=== PATIENT | female | born 1975 | race Caucasian/White ===

== ENCOUNTER 2021-06-25 10:24 | Emergency (ER) | payer BC ==
[2021-06-25 10:34] VITALS: TEMP 98.8
[2021-06-25] MEDS ORDERED: SODIUM CHLORIDE 0.9% 500 ML 500 ML IV STA (10:40)
--- NOTE | 2021-06-25 11:22 | XR ---
EXAMINATION TYPE: XR chest 2V DATE OF EXAM: 06/25/2021 COMPARISON: None HISTORY: Dysrhythmia and shortness of breath. Recent Covid. TECHNIQUE: Frontal and lateral views of the chest are obtained. FINDINGS: There is no focal air space opacity, pleural effusion, or pneumothorax seen. The cardiac silhouette size is within normal limits. The osseous structures are intact. Clips over the upper abdomen. IMPRESSION: No acute cardiopulmonary process.
[2021-06-25 11:23] LABS: Basophils % (A) 0 %; Eosinophils # (A) 0.1 k/uL (0-0.7); Eosinophils % (A) 1 %; HCT 45.5 % (34.0-46.0); HGB 14.7 gm/dL (11.4-16.0); INR 0.9 (<1.2); Lymphocytes # (A) 1.7 k/uL (1.0-4.8); Lymphocytes % (A) 18 %; MCH 30.6 pg (25.0-35.0); MCHC 32.2 g/dL (31.0-37.0); Mean Platelet Volume 7.5; Monocytes # (A) 0.5 k/uL (0-1.0); Monocytes % (A) 5 %; Neutrophils % (A) 74 %; Platelet Count 305 k/uL (150-450); RDW 14.4 % (11.5-15.5); WBC 9.6 k/uL (3.8-10.6)
[2021-06-25 11:24] LABS: ALT 28 U/L (4-34); AST 24 U/L (14-36); African American GFR (CKD) >90 (>60 ml/min/1.73 sqM); Albumin 3.6 g/dL (3.5-5.0); Alkaline Phosphatase 70 U/L (38-126); Anion Gap 9 mmol/L; Blood Urea Nitrogen 17 mg/dL (7-17); Calcium 9.4 mg/dL (8.4-10.2); Carbon Dioxide 22 mmol/L (22-30); Chloride 107 mmol/L (98-107); Glucose 149 mg/dL (74-99); Magnesium 1.9 mg/dL (1.6-2.3); Non-African American GFR(CKD) >90 (>60 ml/min/1.73 sqM); Partial Thromboplastin Time 24.6 sec (22.0-30.0); Potassium 4.1 mmol/L (3.5-5.1); Prothrombin Time 9.8 sec (9.0-12.0); Sodium 138 mmol/L (137-145); Total Bilirubin 0.8 mg/dL (0.2-1.3); Total Protein 6.7 g/dL (6.3-8.2)
[2021-06-25] MEDS ORDERED: METOPROLOL TARTRATE 25 MG TAB PO STA (12:27)
[2021-06-25 12:37] VITALS: RESP 18
--- NOTE | 2021-06-25 13:21 | ED ---
Arrhythmia/Palpitations HPI - General Chief Complaint: Arrhythmia/Palpitations Stated Complaint: Rapid Heart Rate Time Seen by Provider: 06/25/21 10:39 Source: patient, RN notes reviewed Mode of arrival: ambulatory Limitations: no limitations - History of Present Illness Initial Comments: 46-year-old female presents emergency Department with chief complaint of elevated heart rate. Patient states been having issues of last several months is greatly worsened and she had quit twice in 2 months. Patient states that her heart rate while doing some activity today was in the 150s. Patient states she is scheduled for an outpatient stress test secondary to this. Patient does have Stevie's, rheumatoid arthritis. Patient states that he gets very short of breath with her symptoms while at rest she does not have shortness of breath. No chest pain pain or leg swelling usual. - Related Data Home Medications Medication Instructions Recorded Confirmed Hydroxychloroquine Sulfate 200 mg PO BID 06/25/21 06/25/21 [Plaquenil] Levothyroxine Sodium 125 mcg PO DAILY 06/25/21 06/25/21 Magnesium Oxide [Magox 400] 400 mg PO DAILY 06/25/21 06/25/21 Nitrofurantoin Monohyd/M-Cryst 100 mg PO DAILY PRN 06/25/21 06/25/21 [Macrobid] clonazePAM [KlonoPIN] 0.5 mg PO HS 06/25/21 06/25/21 Previous Rx's Medication Instructions Recorded Metoprolol Tartrate [Lopressor] 25 mg PO BID #60 tablet 06/25/21 Allergies Allergy/AdvReac Type Severity Reaction Status Date / Time No Known Allergies Allergy Verified 06/25/21 11:40 Review of Systems ROS Statement: Those systems with pertinent positive or pertinent negative responses have been documented in the HPI. ROS Other: All systems not noted in ROS Statement are negative. Past Medical History Past Medical History: Rheumatoid Arthritis (RA), Thyroid Disorder History of Any Multi-Drug Resistant Organisms: None Reported Past Surgical History: Cholecystectomy, Tonsillectomy Past Psychological History: No Psychological Hx Reported Smoking Status: Never smoker Past Alcohol Use History: None Reported Past Drug Use History: None Reported General Exam Limitations: no limitations General appearance: alert, in no apparent distress Head exam: Present: atraumatic, normocephalic, normal inspection Eye exam: Present: normal appearance, PERRL, EOMI. Absent: scleral icterus, conjunctival injection, periorbital swelling ENT exam: Present: normal exam, mucous membranes moist Neck exam: Present: normal inspection, full ROM. Absent: tenderness, meningismus, lymphadenopathy Respiratory exam: Present: normal lung sounds bilaterally. Absent: respiratory distress, wheezes, rales, rhonchi, stridor Cardiovascular Exam: Present: normal rhythm, tachycardia, normal heart sounds. Absent: systolic murmur, diastolic murmur, rubs, gallop, clicks GI/Abdominal exam: Present: soft, normal bowel sounds. Absent: distended, tenderness, guarding, rebound, rigid Course Vital Signs 06/25/21 06/25/21 10:28 12:30 Temperature 98.8 F Pulse Rate 122 H 108 H Respiratory 20 18 Rate Blood Pressure 141/90 149/85 O2 Sat by Pulse 98 97 Oximetry Medical Decision Making - Medical Decision Making Patient does have some persistent tachycardia. D-dimer, labs all unremarkable. EKG unremarkable. I did discuss the case with Dr. Alegria recommends patient be started on metoprolol 25 mg twice a day will follow-up in office will follow-up for stress test and return for any worsening change in symptoms. Patient was given initial dose emergency department, was evaluated and observed she states she feels greatly improved. - Lab Data Result diagrams: 06/25/21 11:02 06/25/21 11:02 Lab Results 06/25/21 06/25/21 06/25/21 Range/Units 11:02 11:02 11:02 WBC 9.6 (3.8-10.6) k/uL RBC 4.80 (3.80-5.40) m/uL Hgb 14.7 (11.4-16.0) gm/dL Hct 45.5 (34.0-46.0) % MCV 95.0 (80.0-100.0) fL MCH 30.6 (25.0-35.0) pg MCHC 32.2 (31.0-37.0) g/dL RDW 14.4 (11.5-15.5) % Plt Count 305 (150-450) k/uL MPV 7.5 Neutrophils % 74 % Lymphocytes % 18 % Monocytes % 5 % Eosinophils % 1 % Basophils % 0 % Neutrophils # 7.0 (1.3-7.7) k/uL Lymphocytes # 1.7 (1.0-4.8) k/uL Monocytes # 0.5 (0-1.0) k/uL Eosinophils # 0.1 (0-0.7) k/uL Basophils # 0.0 (0-0.2) k/uL PT 9.8 (9.0-12.0) sec INR 0.9 (<1.2) APTT 24.6 (22.0-30.0) sec D-Dimer 0.46 (<0.60) mg/L FEU Sodium 138 (137-145) mmol/L Potassium 4.1 (3.5-5.1) mmol/L Chloride 107 (98-107) mmol/L Carbon Dioxide 22 (22-30) mmol/L Anion Gap 9 mmol/L BUN 17 (7-17) mg/dL Creatinine 0.63 (0.52-1.04) mg/dL Est GFR (CKD-EPI)AfAm >90 (>60 ml/min/1.73 sqM) Est GFR (CKD-EPI)NonAf >90 (>60 ml/min/1.73 sqM) Glucose 149 H (74-99) mg/dL Calcium 9.4 (8.4-10.2) mg/dL Magnesium 1.9 (1.6-2.3) mg/dL Total Bilirubin 0.8 (0.2-1.3) mg/dL AST 24 (14-36) U/L ALT 28 (4-34) U/L Alkaline Phosphatase 70 (38-126) U/L Troponin I (0.000-0.034) ng/mL Total Protein 6.7 (6.3-8.2) g/dL Albumin 3.6 (3.5-5.0) g/dL TSH 2.630 (0.465-4.680) mIU/L 06/25/21 Range/Units 11:02 WBC (3.8-10.6) k/uL RBC (3.80-5.40) m/uL Hgb (11.4-16.0) gm/dL Hct (34.0-46.0) % MCV (80.0-100.0) fL MCH (25.0-35.0) pg MCHC (31.0-37.0) g/dL RDW (11.5-15.5) % Plt Count (150-450) k/uL MPV Neutrophils % % Lymphocytes % % Monocytes % % Eosinophils % % Basophils % % Neutrophils # (1.3-7.7) k/uL Lymphocytes # (1.0-4.8) k/uL Monocytes # (0-1.0) k/uL Eosinophils # (0-0.7) k/uL Basophils # (0-0.2) k/uL PT (9.0-12.0) sec INR (<1.2) APTT (22.0-30.0) sec D-Dimer (<0.60) mg/L FEU Sodium (137-145) mmol/L Potassium (3.5-5.1) mmol/L Chloride (98-107) mmol/L Carbon Dioxide (22-30) mmol/L Anion Gap mmol/L BUN (7-17) mg/dL Creatinine (0.52-1.04) mg/dL Est GFR (CKD-EPI)AfAm (>60 ml/min/1.73 sqM) Est GFR (CKD-EPI)NonAf (>60 ml/min/1.73 sqM) Glucose (74-99) mg/dL Calcium (8.4-10.2) mg/dL Magnesium (1.6-2.3) mg/dL Total Bilirubin (0.2-1.3) mg/dL AST (14-36) U/L ALT (4-34) U/L Alkaline Phosphatase (38-126) U/L Troponin I <0.012 (0.000-0.034) ng/mL Total Protein (6.3-8.2) g/dL Albumin (3.5-5.0) g/dL TSH (0.465-4.680) mIU/L Disposition Clinical Impression: Palpitations, Tachycardia Disposition: HOME SELF-CARE Condition: Stable Instructions (If sedation given, give patient instructions): Heart Palpitations (ED) Additional Instructions: Please return to the Emergency Department if symptoms worsen or any other concerns. Prescriptions: Metoprolol Tartrate [Lopressor] 25 mg PO BID #60 tablet Is patient prescribed a controlled substance at d/c from ED?: No Referrals: Mohsen Luna Jr, [Primary Care Provider] - 1-2 days Time of Disposition: 13:21
[2021-06-25 13:29] VITALS: BP 139/82; PULSE 81
== END 2021-06-25 13:29 | disposition home or self-care (01) ==
LOC: EC 10:24
DX: R00.0 Tachycardia, unspecified (principal); R00.2 Palpitations; E07.9 Disorder of thyroid, unspecified; Z90.49 Acquired absence of other specified parts of digestive tract
CPT/HCPCS: 36415; 71046; 80053; 83735; 84443; 84484; 85025; 85379; 85610; 85730; 93005; 99285

== ENCOUNTER → 2021-07-04 | Outpatient (CLI) | payer OTHER ==
[~2021-07-04] MED LIST: DOBUTamine DRIP for NUC MED 500 MG in DEXTROSE/WATER 1 250ML.BAG IV PRN
--- NOTE | 2021-07-05 08:22 | ECHOS ---
STRESS ECHOCARDIOGRAM DATE OF STUDY: 07/04/2021 INDICATIONS: Chest pain. BASELINE HEART RATE: 91 BASELINE BLOOD PRESSURE: 120/53 MAXIMUM HEART RATE: 154 MAXIMUM BLOOD PRESSURE: 239/55 85% MPHR: 149 100% MPHR: 175 METS: 4.7 MAXIMUM STAGE REACHED: 1 TOTAL EXERCISE TIME: 3:30 CLINICAL INFORMATION: STRESS DATA: Pre-testing physical examination showed a heart rate of 91, pressure of 120/53 mmHg. Baseline EKG showed sinus mechanism. The patient exercised on the treadmill according to Carlos protocol for a total of 3 minutes and 30 seconds and achieved 4.7 METS. Max heart rate was 152, which is about 88% of maximum predicted heart rate, with maximum blood pressure of 239/55 mmHg. Clinically the patient did not have any symptoms of chest pain or chest discomfort. The EKG did not show any significant ST or T-wave abnormalities concerning for ischemia. ANALYSIS: Echocardiogram images from parasternal long axis view, parasternal short axis view, apical 4-chamber and apical 2 chamber views were obtained as the baseline images, at the peak of the heart rate as well as on recovery. The echocardiogram images showed good augmentation in the left ventricular systolic function without any evidence of wall motion abnormalities concerning for ischemia. CONCLUSION: 1. Poor exercise tolerance. 2. Normal EKG in response to exercise. 3. Normal echocardiogram in response to exercise. MMODL / IJN: [id number] /
== END | disposition home or self-care (01) ==
LOC: RADNMMAIN 08:54 → EDUNIT# 09:15
PROVIDERS: ATTEND Family Medicine
DX: R00.9 Unspecified abnormalities of heart beat (principal); R10.13 Epigastric pain
CPT/HCPCS: 93351; Q9950

== ENCOUNTER → 2022-08-10 | Outpatient (CLI) | payer BC, OTHER ==
--- NOTE | 2022-08-10 07:55 | MR ---
EXAMINATION TYPE: MR knee RT wo con DATE OF EXAM: 08/10/2022 COMPARISON: Limited right knee x-ray July 15, 2022 HISTORY: Rt knee medial pain with locking and swelling after fall injury 3 weeks ago. Meniscal derang ement. MCL sprain. Osteoarthritis all per order. TECHNIQUE: Multiplanar, multisequence images of the knee is performed without IV contrast. FINDINGS: MEDIAL MENISCUS: Anterior and posterior horns are intact without tear. LATERAL MENISCUS: Anterior and posterior horns are intact without tear. CRUCIATE LIGAMENTS: The posterior cruciate ligaments is intact and unremarkable. There is full-thickn ess tear mid substance of the anterior cruciate ligament. COLLATERAL LIGAMENTS: The medial collateral ligament and lateral collateral ligament complex are inta ct. Moderate fluid surrounds the medial collateral ligament. EXTENSOR MECHANISM: Visualized quadriceps and patellar tendons are intact. EFFUSION: Moderate-sized suprapatellar joint effusion. POPLITEAL CYST: Small multiseptated popliteal/ornelas cyst sagittal image 10 with some ill-defined flui d extending inferiorly. Mild edema extends through the posterior medial muscle below the knee joint. TRICOMPARTMENT SPACES: Mild to moderate narrowing patellofemoral compartment. Mild narrowing medial t ibiofemoral compartment. No significant spurring. 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 BONE MARROW SIGNAL: Heterogeneity consistent with red marrow reconversion. Areas of diminished T1 and increased T2 signal posterior superior patella at the site of full-thickness cartilaginous loss is n oted. OTHER: No additional significant abnormality is appreciated. IMPRESSION: 1. Complete ACL tear. No osseous contusion injury noted. 2. Tricompartment degenerative changes greatest findings patellofemoral compartment as detailed above . 3. Moderate MCL sprain injury. 4. Moderate-sized suprapatellar joint effusion. 5. Small leaking multiseptated popliteal cyst. No definitive visualized meniscal tear.
== END | disposition home or self-care (01) ==
LOC: RADMRIMAIN 06:40
PROVIDERS: ATTEND Orthopaedic Surgery
DX: S83.411A Sprain of medial collateral ligament of right knee, initial encounter (principal); M17.11 Unilateral primary osteoarthritis, right knee; M71.21 Synovial cyst of popliteal space [Baker], right knee; M25.461 Effusion, right knee

== ENCOUNTER → 2023-04-26 | Outpatient (CLI) | payer BC, OTHER ==
--- NOTE | 2023-04-26 13:04 | US ---
EXAMINATION TYPE: US kidneys/renal and bladder DATE OF EXAM: 04/26/2023 COMPARISON: NONE CLINICAL INDICATION: Female, 48 years old with history of R10.9 ABD PAIN; Recurrent UTIs x 1 year wit h back pain. EXAM MEASUREMENTS: Right Kidney: 10.3 x 5.1 x 4.5 cm Left Kidney: 11.3 x 5.3 x 5.2 cm Right Kidney: No hydronephrosis or masses seen Left Kidney: No hydronephrosis or masses seen Bladder: wnl Bilateral Jets seen: Yes There is no evidence for hydronephrosis at this point in time. No nephrolithiasis is seen. No daniel s are identified. The urinary bladder is anechoic. Bilateral ureteral jets are seen. IMPRESSION: Unremarkable renal ultrasound.
== END | disposition home or self-care (01) ==
LOC: RADUSWWP 12:31
PROVIDERS: ATTEND Family Medicine
DX: N39.0 Urinary tract infection, site not specified (principal)
CPT/HCPCS: 76770

== ENCOUNTER 2024-02-13 23:04 | Emergency (ER) | payer BC, OTHER ==
[2024-02-13 23:11] VITALS: RESP 18; TEMP 99.1
[2024-02-14] MEDS: SODIUM CHLORIDE 0.9% 1,000 ML IV STA (00:08)
[2024-02-14 00:16] LABS: Basophils % (A) 1 %; Eosinophils # (A) 0.2 k/uL (0-0.7); Eosinophils % (A) 2 %; HCT 40.8 % (34.0-46.0); HGB 13.1 gm/dL (11.4-16.0); Lymphocytes # (A) 1.3 k/uL (1.0-4.8); Lymphocytes % (A) 14 %; MCHC 32.2 g/dL (31.0-37.0); MCV 96.4 fL (80.0-100.0); Mean Platelet Volume 7.4; Monocytes # (A) 0.6 k/uL (0-1.0); Monocytes % (A) 6 %; Neutrophils # (A) 7.1 k/uL (1.3-7.7); Neutrophils % (A) 77 %; Platelet Count 322 k/uL (150-450); RBC 4.23 m/uL (3.80-5.40); RDW 13.4 % (11.5-15.5); WBC 9.3 k/uL (3.8-10.6)
[2024-02-14 00:28] LABS: INR 0.9 (<1.2); Partial Thromboplastin Time 25.5 sec (22.0-30.0); Prothrombin Time 10.2 sec (10.0-12.5)
[2024-02-14 00:31] LABS: ALT 18 U/L (4-34); AST 24 U/L (14-36); African American GFR (CKD) >90 (>60 ml/min/1.73 sqM); Albumin 3.5 g/dL (3.5-5.0); Alkaline Phosphatase 87 U/L (38-126); Amylase 74 U/L (30-110); Anion Gap 7 mmol/L; Blood Urea Nitrogen 14 mg/dL (7-17); Carbon Dioxide 28 mmol/L (22-30); Chloride 100 mmol/L (98-107); Glucose 114 mg/dL (74-99); Lipase 446 U/L (23-300); Non-African American GFR(CKD) >90 (>60 ml/min/1.73 sqM); Potassium 4.2 mmol/L (3.5-5.1); Sodium 135 mmol/L (137-145); Total Bilirubin 0.3 mg/dL (0.2-1.3); Total Protein 6.2 g/dL (6.3-8.2)
[2024-02-14 00:47] LABS: Appearance,Urine Cloudy (Clear); Bilirubin,Urine Negative (Negative); Blood,Urine Negative (Negative); Color,Urine Yellow; Glucose,Urine (UA) Negative (Negative); Hyaline Casts,Urine 2 /lpf (0-2); Ketones,Urine Trace (Negative); Leukocyte Esterase,Urine Negative (Negative); Mucus,Urine Many /hpf; Nitrite,Urine Negative (Negative); PH, Urine 6.5 (5.0-8.0); Protein,Urine 1+ (Negative); RBC,Urine 2 /hpf (0-5); Squamous Epithelial Cell,Urine 20 /hpf (0-4); WBC,Urine 2 /hpf (0-5)
[2024-02-14 01:03] LABS: HCG,Qualitative Serum Not Detected
--- NOTE | 2024-02-14 01:16 | CT ---
EXAMINATION TYPE: CT abdomen pelvis w con DATE OF EXAM: 02/14/2024 HISTORY: UTI's on and off for past several months, last night started have spasming and pain in her v agina, rectum, and urethra. H/O cholecystectomy. CT DLP: 5119.8mGycm Automated Exposure Control for Dose Reduction was Utilized. CONTRAST: CT scan of the abdomen and pelvis is performed with IV Contrast, patient injected with 100 mL of Isov ue 300. COMPARISON: None. FINDINGS: LUNG BASES: No significant abnormality is appreciated. LIVER/GB: Liver is diffusely low dense consistent with fatty infiltrative hepatocellular disease. Cho lecystectomy clips are seen. No biliary dilatation. PANCREAS: No significant abnormality is seen. SPLEEN: No significant abnormality is seen. ADRENALS: No significant abnormality is seen. KIDNEYS: Symmetric cortical medullary uptake and excretion without hydronephrosis seen bilaterally. BOWEL: No abnormal small or large bowel dilatation. UTERUS/ADNEXA: Anteverted uterus. Normal-sized ovaries. LYMPH NODES: No greater than 1cm abdominal or pelvic lymph nodes are appreciated. OSSEOUS STRUCTURES: No significant abnormality is seen. OTHER: Tiny fat-containing umbilical hernia. IMPRESSION: No significant acute finding is seen to account for patient's clinical symptoms. [facility], , 02/14/2024 1:13 AM
--- NOTE | 2024-02-14 02:11 | ED ---
General Adult HPI - General Chief complaint: Urogenital Stated complaint: Abdominal Pain, Difficulty urinating Time Seen by Provider: 02/13/24 23:12 Source: patient Mode of arrival: ambulatory Limitations: no limitations - History of Present Illness Initial comments: Patient is a 48-year-old female no significant past medical history presenting today for dysuria and lower abdominal cramping as well suprapubic pain. Began yesterday as what felt like "muscle spasms" in her lower abdomen that radiated through her vagina, rectum and urethra and then today the pain is less intense however she feels like her lower abdominal muscles are sore. States that she has been being treated for a UTI for the last 3 weeks with 2 courses of bactrim which she has since completed. Denies hematuria. Endorses nausea. No diarrhea or black/bloody stools. Denies vaginal discharge, vaginal bleeding, prior STIs or concerns for STIs. No fevers, no emesis. - Related Data Home Medications Medication Instructions Recorded Confirmed Hydroxychloroquine Sulfate 200 mg PO BID 06/25/21 06/25/21 [Plaquenil] Levothyroxine Sodium 125 mcg PO DAILY 06/25/21 06/25/21 Magnesium Oxide [Magox 400] 400 mg PO DAILY 06/25/21 06/25/21 Nitrofurantoin Monohyd/M-Cryst 100 mg PO DAILY PRN 06/25/21 06/25/21 [Macrobid] clonazePAM [KlonoPIN] 0.5 mg PO HS 06/25/21 06/25/21 Previous Rx's Medication Instructions Recorded Metoprolol Tartrate [Lopressor] 25 mg PO BID #60 tablet 06/25/21 Cephalexin [Keflex] 500 mg PO Q12HR 1 Days #14 cap 02/14/24 metroNIDAZOLE [Flagyl] 500 mg PO BID #14 tab 02/14/24 Allergies Allergy/AdvReac Type Severity Reaction Status Date / Time No Known Allergies Allergy Verified 02/13/24 23:10 Review of Systems ROS Statement: Those systems with pertinent positive or pertinent negative responses have been documented in the HPI. ROS Other: All systems not noted in ROS Statement are negative. Past Medical History Past Medical History: Rheumatoid Arthritis (RA), Thyroid Disorder History of Any Multi-Drug Resistant Organisms: None Reported Past Surgical History: Cholecystectomy, Tonsillectomy Past Psychological History: No Psychological Hx Reported Smoking Status: Never smoker Past Alcohol Use History: None Reported Past Drug Use History: None Reported General Exam - General Exam Comments Initial Comments: PE: CONSTITUTIONAL: No apparent distress, well appearing SKIN: Warm, dry, no jaundice, hives or petechiae EYES: Pupils are equally round, extraocular movements intact without nystagmus, clear conjunctiva, non-icteric sclera HENT: Normocephalic, atraumatic, moist mucus membranes, oropharynx clear without exudates NECK: , Full range of motion, normal appearance PULMONARY: Clear to auscultation without wheezes, rhonchi, or rales, normal excursion, no accessory muscle use and no stridor CARDIOVASCULAR: Regular rate, rhythm, normal S1 and S2. No appreciated murmurs, rubs or gallops. Strong radial pulses with intact distal perfusion. No lower extremity edema GASTROINTESTINAL: Soft, mild suprapubic tenderness non-distended, no palpable masses, no rebound; guarding with palpation of the suprapubic region no hepatosplenomegaly GENITOURINARY: Pelvic exam performed with RN at bedside, showed scant yellow- green discharge, no fistula visible MUSCULOSKELETAL: Extremities have no gross deformity, no edema, redness, or swelling. No calf swelling ot TTP. NEUROLOGIC:_a/o x 3, GCS 15, normal mentation and speech. Moves all extremities x 4 without motor or sensory deficit PSYCHIATRIC:_normal mood and affect, thought process is clear and linear Limitations: no limitations Course Vital Signs 02/13/24 02/14/24 02/14/24 23:05 01:11 02:35 Temperature 99.1 F Pulse Rate 107 H 97 98 Respiratory 18 18 18 Rate Blood Pressure 149/76 118/67 130/72 O2 Sat by Pulse 95 97 96 Oximetry Medical Decision Making - Medical Decision Making Was pt. sent in by a medical professional or institution (, PA, MANAGER OPERATING, urgent care, hospital, or residential...) When possible be specific @ -No Did you speak to anyone other than the patient for history (EMS, parent, family, police, friend...)? What history was obtained from this source @ -No Did you review nursing and triage notes (agree or disagree)? Why? @ -I reviewed and agree with nursing and triage notes Were old charts reviewed (outside hosp., previous admission, EMS record, old EKG, old radiological studies, urgent care reports/EKG's, residential records)? Report findings @ -US kidneys/bladder done 05/18 for recurrent UTIs x 1 year did not show any abnormalities Differential Diagnosis (chest pain, altered mental status, abdominal pain women, abdominal pain men, vaginal bleeding, weakness, fever, dyspnea, syncope, headache, dizziness, GI bleed, back pain, seizure, CVA, palpatations, mental he alth, musculoskeletal)? @Differential diagnosis remains broad however top considerations include UTI, ureterolithiasis, PID, vulvitis, constipation, IBS, IBD, appendicitis, this is not all-inclusive list EKG interpreted by me (3pts min.). @ -As above X-rays interpreted by me (1pt min.). @ -None done CT interpreted by me (1pt min.). @ -No evidence of obstruction, perforation or masses U/S interpreted by me (1pt. min.). @ None done What testing was considered but not performed or refused? (CT, X-rays, U/S, labs)? Why? @ -None What meds were considered but not given or refused? Why? @ -None Did you discuss the management of the patient with other professionals (professionals i.e. , PA, MANAGER OPERATING, lab, RT, psych nurse, health social work professor, crushed stone grader, teacher, correctional officer, senior case manager)? Give summary @ -No Was smoking cessation discussed for >3mins.? @ -No Was critical care preformed (if so, how long)? @ -No Were there social determinants of health that impacted care today? How? (Homelessness, low income, unemployed, alcoholism, drug addiction, transportation, low edu. Level, literacy, decrease access to med. care, alf, rehab)? @ -No Was there de-escalation of care discussed even if they declined (Discuss DNR or withdrawal of care, Hospice)? @ -No What co-morbidities impacted this encounter? (DM, HTN, Smoking, COPD, CAD, Cancer, CVA, ARF, Chemo, Hep., AIDS, mental health diagnosis, sleep apnea, morbid obesity)? @Morbid obesity Was patient admitted / discharged? Hospital course, mention meds given and route, prescriptions, significant lab abnormalities, going to OR and other pertinent info. @ -Hospital course discharged Patient is a pleasant previously healthy 48-year-old female presenting for pelvic/lower abdominal cramping and pain as well as dysuria despite outpatient antibiotics. On assessment patient is well-appearing and in no acute distress. Physical exam performed. Pelvic exam did show small amount of yellow-green discharge from cervical os. JOSE M Parsons as quality control engineering technician. Sent for culture. Labs and imaging reviewed. Grossly within normal limits. Abnormal values not co ncerning for acute pathology related to presenting complaint. Lipase was noted to be elevated at 446 however patient has no epigastric pain or tenderness palpation, no vomiting, no fat stranding around pancreas on CT, LFTs and lactic are within normal limits. Patient's presentation does not consistent with acute pancreatitis. Urinalysis shows no signs of infection. Discussed with patient reassuring workup thus far. We discussed discharge noted on pelvic exam. Patient is a sure she has no history or concerns for STIs as she is monogamous with her and was tested for STIs after her previous relationship. Given UA without signs of infection, labs otherwise reassuring, imaging without signs of acute process discussed with patient treating for bacterial vaginosis, and trialing cephalexin due to persistent UTI symptoms, and sending testing for gonorrhea chlamydia. We did discuss prophylactic treatment for STIs however patient politely declined. I discussed with the patient the importance of following up with [facility] MA[facility]GER as well as urology given persistent UTI symptoms without evidence of urinary tract infection and her symptoms that caused her presentation today. Patient is understanding and agreeable plan of care. She is comfortable discharge home at this time. In my medical judgment there is currently no evidence of an immediate life- threatening or surgical condition. Discharge is therefore indicated at this time. Discharge treatment instructions, follow up instructions, and appropriate emergency department return precautions were discussed with the patient and/or medical decision maker. Patient and/or medical decision maker expressed understanding of and agreed with the treatment plan, follow up instructions, and emergency department return precaution. All patient's and/or medical decision maker's questions were answered. Undiagnosed new problem with uncertain prognosis? @ -No Drug Therapy requiring intensive monitoring for toxicity (Heparin, Nitro, Insulin, Cardizem)? @ -No Were any procedures done? @ -No Diagnosis/symptom? @ -Cystitis, vaginal discharge Acute, or Chronic, or Acute on Chronic? @ -Acute Uncomplicated (without systemic symptoms) or Complicated (systemic symptoms)? @ -Complicated Side effects of treatment? @ -No Exacerbation, Progression, or Severe Exacerbation? @ -No Poses a threat to life or bodily function? How? (Chest pain, [place], SD, pneumonia, PE, COPD, DKA, ARF, appy, cholecystitis, CVA, Diverticulitis, Homicidal, Suici annabel, threat to staff... and all critical care pts) @Unlikely - Lab Data Result diagrams: 02/13/24 23:59 02/13/24 23:59 Lab Results 02/13/24 02/13/24 02/13/24 Range/Units 23:57 23:59 23:59 WBC 9.3 (3.8-10.6) k/uL RBC 4.23 (3.80-5.40) m/uL Hgb 13.1 (11.4-16.0) gm/dL Hct 40.8 (34.0-46.0) % MCV 96.4 (80.0-100.0) fL MCH 31.0 (25.0-35.0) pg MCHC 32.2 (31.0-37.0) g/dL RDW 13.4 (11.5-15.5) % Plt Count 322 (150-450) k/uL MPV 7.4 Neutrophils % 77 % Lymphocytes % 14 % Monocytes % 6 % Eosinophils % 2 % Basophils % 1 % Neutrophils # 7.1 (1.3-7.7) k/uL Lymphocytes # 1.3 (1.0-4.8) k/uL Monocytes # 0.6 (0-1.0) k/uL Eosinophils # 0.2 (0-0.7) k/uL Basophils # 0.0 (0-0.2) k/uL PT 10.2 (10.0-12.5) sec INR 0.9 (<1.2) APTT 25.5 (22.0-30.0) sec Sodium (137-145) mmol/L Potassium (3.5-5.1) mmol/L Chloride (98-107) mmol/L Carbon Dioxide (22-30) mmol/L Anion Gap mmol/L BUN (7-17) mg/dL Creatinine (0.52-1.04) mg/dL Est GFR (CKD-EPI)AfAm (>60 ml/min/1.73 sqM) Est GFR (CKD-EPI)NonAf (>60 ml/min/1.73 sqM) Glucose (74-99) mg/dL Plasma Lactic Acid Javier (0.7-2.0) mmol/L Calcium (8.4-10.2) mg/dL Total Bilirubin (0.2-1.3) mg/dL AST (14-36) U/L ALT (4-34) U/L Alkaline Phosphatase (38-126) U/L Total Protein (6.3-8.2) g/dL Albumin (3.5-5.0) g/dL Amylase (30-110) U/L Lipase (23-300) U/L HCG, Qual Urine Color Yellow Urine Appearance Cloudy H (Clear) Urine pH 6.5 (5.0-8.0) Ur Specific [place] 1.040 H (1.001-1.035) Urine Protein 1+ H (Negative) Urine Glucose (UA) Negative (Negative) Urine Ketones Trace H (Negative) Urine Blood Negative (Negative) Urine Nitrite Negative (Negative) Urine Bilirubin Negative (Negative) Urine Urobilinogen 2.0 (<2.0) mg/dL Ur Leukocyte Esterase Negative (Negative) Urine RBC 2 (0-5) /hpf Urine WBC 2 (0-5) /hpf Ur Squamous Epith Cells 20 H (0-4) /hpf Hyaline Casts 2 (0-2) /lpf Urine Mucus Many H (None) /hpf 02/13/24 02/13/24 Range/Units 23:59 23:59 WBC (3.8-10.6) k/uL RBC (3.80-5.40) m/uL Hgb (11.4-16.0) gm/dL Hct (34.0-46.0) % MCV (80.0-100.0) fL MCH (25.0-35.0) pg MCHC (31.0-37.0) g/dL RDW (11.5-15.5) % Plt Count (150-450) k/uL MPV Neutrophils % % Lymphocytes % % Monocytes % % Eosinophils % % Basophils % % Neutrophils # (1.3-7.7) k/uL Lymphocytes # (1.0-4.8) k/uL Monocytes # (0-1.0) k/uL Eosinophils # (0-0.7) k/uL Basophils # (0-0.2) k/uL PT (10.0-12.5) sec INR (<1.2) APTT (22.0-30.0) sec Sodium 135 L (137-145) mmol/L Potassium 4.2 (3.5-5.1) mmol/L Chloride 100 (98-107) mmol/L Carbon Dioxide 28 (22-30) mmol/L Anion Gap 7 mmol/L BUN 14 (7-17) mg/dL Creatinine 0.59 (0.52-1.04) mg/dL Est GFR (CKD-EPI)AfAm >90 (>60 ml/min/1.73 sqM) Est GFR (CKD-EPI)NonAf >90 (>60 ml/min/1.73 sqM) Glucose 114 H (74-99) mg/dL Plasma Lactic Acid Javier 1.2 (0.7-2.0) mmol/L Calcium 9.0 (8.4-10.2) mg/dL Total Bilirubin 0.3 (0.2-1.3) mg/dL AST 24 (14-36) U/L ALT 18 (4-34) U/L Alkaline Phosphatase 87 (38-126) U/L Total Protein 6.2 L (6.3-8.2) g/dL Albumin 3.5 (3.5-5.0) g/dL Amylase 74 (30-110) U/L Lipase 446 H (23-300) U/L HCG, Qual Not Detected Urine Color Urine Appearance (Clear) Urine pH (5.0-8.0) Ur Specific [place] (1.001-1.035) Urine Protein (Negative) Urine Glucose (UA) (Negative) Urine Ketones (Negative) Urine Blood (Negative) Urine Nitrite (Negative) Urine Bilirubin (Negative) Urine Urobilinogen (<2.0) mg/dL Ur Leukocyte Esterase (Negative) Urine RBC (0-5) /hpf Urine WBC (0-5) /hpf Ur Squamous Epith Cells (0-4) /hpf Hyaline Casts (0-2) /lpf Urine Mucus (None) /hpf Disposition Clinical Impression: Cystitis, Vaginal Discharge Disposition: HOME SELF-CARE Condition: Good Instructions (If sedation given, give patient instructions): Urinary Tract Infection in Women (ED) Additional Instructions: Every disease is a spectrum and a small chance still exists that a serious condition could develop, for this reason, please monitor yourself closely for new, changing or worsening symptoms, symptoms that persist beyond 48 hours, fever, failure symptoms to improve or resolve after completion of antibiotics, inability to tolerate/keep down fluids or your medications, inability to follow up with outpatient providers as instructed and should you experience these symptoms or should you have any further concerns for your wellbeing please return to the ED or call 911 immediately. Please abstain from sex or use condoms until antibiotics are completed. PLEASE call your primary care physician as soon as possible to arrange / discuss plan for followup appointment. Appointment in the next 1-3 days is strongly encouraged if possible. PLEASE let us know here before you leave if there is anything further we can do to be of any assistance. Take care and feel Better! Prescriptions: metroNIDAZOLE [Flagyl] 500 mg PO BID #14 tab Cephalexin [Keflex] 500 mg PO Q12HR 1 Days #14 cap Is patient prescribed a controlled substance at d/c from ED?: No Referrals: Nehemiah Mccann DO [Primary Care Provider] - 1-2 days Vel Chapman MD [STAFF PHYSICIAN] - 1-2 days
[2024-02-14] MEDS: metroNIDAZOLE 500 MG TAB PO STA (02:26)
[2024-02-14] MEDS: CEPHALEXIN 500 MG CAP PO STA (02:26)
[2024-02-14 02:37] VITALS: BP 130/72; PULSE 98
== END 2024-02-14 02:37 | disposition home or self-care (01) ==
LOC: EC 23:04
CPT/HCPCS: 36415; 74177; 80053; 81001; 82150; 83605; 83690; 84703; 85025; 85610; 85730; 87070; 96360; 99285